=== PATIENT | female | born 1945 | race Two or more races ===

== ENCOUNTER 2018-02-10 19:17 | Inpatient (IN) | payer MEDICARE ==
[~2018-02-10] VITALS: Ht 157.5 cm; Wt 85.0 kg
[2018-02-10 20:26] LABS: BASOPHIL % 0.2 % (0-2); PLATELET COUNT 243 x10^3mcL (130-400)
[2018-02-10 20:30] LABS: CALCIUM 8.7 mg/dL (8.5-10.1); CARBON DIOXIDE 28.4 mmol/L (21-32); CHLORIDE SERUM 107 mmol/L (98-107); CREATININE SERUM 0.8 mg/dL (0.6-1.0); GLUCOSE SERUM 160 mg/dL (74-106); POTASSIUM SERUM 3.8 mmol/L (3.5-5.1); SODIUM SERUM 141 mmol/L (136-145)
[2018-02-10 20:35] LABS: ALBUMIN 2.9 g/dL (3.4-5.0); ALKALINE PHOSPHATASE 45 U/L (46-116); ALT/SGPT 20 U/L (14-59); AST/SGOT 15 U/L (15-37); BILIRUBIN TOTAL 0.24 mg/dL (0.20-1.00); TOTAL PROTEIN, SERUM 6.3 g/dL (6.4-8.2)
[2018-02-10 20:44] LABS: RED CELL DISTRIBUTION WIDTH 16.7 % (11.5-14.5)
[2018-02-10 21:11] LABS: CHOLESTEROL/HDL RATIO 3.2
[2018-02-10 22:03] LABS: AMPHETAMINE QUAL UR NONE DETECTED (NEG <=1000)
[2018-02-10] MEDS ORDERED: MET2.5 PO (22:13)
[2018-02-10 22:40] LABS: MAGNESIUM 2.3 mg/dL (1.8-2.4); PHOSPHOROUS 2.3 mg/dL (2.5-4.9)
[2018-02-10 22:51] LABS: FREE T4 1.15 ng/dL (0.76-1.46); T4(THYROXINE) 8.5 ug/dL (4.7-13.3)
[2018-02-10 22:52] VITALS: BP 152/56
[2018-02-10 23:03] LABS: T3 TOTAL 1.23 ng/mL
[2018-02-11 04:39] LABS: microscopic required? YES; urine erythrocyte 1+ (NEGATIVE)
[2018-02-11 05:45] VITALS: BP 103/61
[2018-02-11 08:50] VITALS: BP 118/58
[2018-02-11 13:21] VITALS: BP 128/59
[2018-02-11 17:12] VITALS: BP 128/59
[2018-02-11] MEDS ORDERED: ECO81 PO (17:12)
[2018-02-11] MEDS ORDERED: ATORVASTATIN CA40 M1 PO (17:12)
[2018-02-11] MEDS ORDERED: ZES5 PO (17:12)
[2018-02-11 17:30] VITALS: BP 146/66
== END 2018-02-11 17:48 | disposition home or self-care (01) | DRG 392 ==
LOC: ED 19:17 → DU 21:58
PROVIDERS: Emergency Medicine; Family Medicine
DX: K21.9 Gastro-esophageal reflux disease without esophagitis (principal); E44.0 Moderate protein-calorie malnutrition; Z85.3 Personal history of malignant neoplasm of breast; F17.210 Nicotine dependence, cigarettes, uncomplicated; E78.5 Hyperlipidemia, unspecified; M06.9 Rheumatoid arthritis, unspecified; R31.9 Hematuria, unspecified; E83.39 Other disorders of phosphorus metabolism; Z68.34 Body mass index [BMI] 34.0-34.9, adult; E66.9 Obesity, unspecified
CPT/HCPCS: 82962; 83880; 84439; 99406; Q0092